=== PATIENT | male | born 1980 | race Caucasian/White ===

== ENCOUNTER 2016-11-15 07:57 | Inpatient (IN) ==
[2016-11-15 08:09] LABS: BUN 16 mg/dL (8-22); CALCIUM 9.1 mg/dL (8.8-10.2); CHLORIDE 102 mmol/L (98-107); CK PROFILE 240 U/L (24-204); POTASSIUM 5.7 mmol/L (3.5-5.1); SODIUM 138 mmol/L (136-145); TCO2 28 mmol/L (25-35); TOTAL BILIRUBIN 0.42 mg/dL (0.20-1.00); TOTAL PROTEIN 6.9 g/dL (6.3-8.3)
[2016-11-15 08:10] LABS: AGAP 8; ALBUMIN 4.3 g/dL (3.5-5.0); ALKALINE PHOSPHATASE 76 U/L (32-122); CK INDEX 2.2 (0.0-2.5); CK-MB 5.34 ng/mL (0.0-5.0); COSMO 278; GOT 18 U/L (10-34); GPT 15 U/L (10-44)
[2016-11-15 08:11] LABS: UR AMPHETAMINES QUAL NONE DETECTED (NONE DETECT); UR BARBITUATES QUAL NONE DETECTED (NONE DETECT); UR BENZODIAZEPIN QUAL NONE DETECTED (NONE DETECT); UR CANNABINOIDS QUAL NONE DETECTED (NONE DETECT); UR COCAINE QUAL NONE DETECTED (NONE DETECT); UR METHADONE QUAL NONE DETECTED (NONE DETECT); UR OPIATES QUAL NONE DETECTED (NONE DETECT); UR OXYCODONE QUAL NONE DETECTED (NONE DETECT); UR PCP QUAL NONE DETECTED (NONE DETECT)
[2016-11-15 08:37] LABS: BLOOD TYPE ARTERIAL; PO2(98.6) 132 mmHg (60-100); SAMPLE BLOOD; pH(98.6) 7.23 (7.35-7.45)
[2016-11-15 08:38] LABS: BE -1.7 mmoll (-3.0-3.0); METHB 1.8 % (0.0-1.5); MODALITY CANNULA; O2(CT) 17.7 mL/dL (15.0-23.0); SAO2 97.7 % (95.0-100.0); THB 13.1 g/dL (11.5-17.4)
[2016-11-15 08:40] LABS: ALLEN TEST YES; DRAW SITE R RADIAL
[2016-11-15 08:41] LABS: PCO2(98.6) 65 mmHg (35-45)
[2016-11-15 08:43] LABS: MANUAL DIFF NEEDED? NO; URINE CULTURE NEEDED? NO; URINE MICRO REVIEW NEEDED? NO; URINE SOURCE CATH
[2016-11-15 09:31] LABS: BASO% 0.1 % (0.0-0.8); EOS# 0.13 X1000 (0.0-0.7); EOS% 1.5 % (0.0-10.0); HEMATOCRIT 41.5 % (42.0-52.0); HEMOGLOBIN 14.1 g/dL (14.0-18.0); LYMPH% 16.1 % (20.5-51.1); MCH 30.2 PG (27-31); MCV 88.9 FL (81-99); MONO% 9.2 % (1.7-9.3); MPV 9.4 FL (7.4-10.4); NEUT% 73.1 % (42.2-75.2); PLT 161 X1000 (130-400); RBC 4.67 XMIL (4.7-6.1)
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
[2016-11-15 09:48] LABS: UR EPITHELIAL CELLS <10 /HPF (<10); URINE RBC <10 /HPF (<10); URINE WBC <10 /HPF (<10)
[2016-11-15 09:49] LABS: BILIRUBIN URINE NEGATIVE (NEGATIVE); BLOOD URINE NEGATIVE (NEGATIVE); COLOR YELLOW; GLUCOSE URINE NEGATIVE (NEGATIVE); TURBIDITY URINE CLEAR (CLEAR); URINE BACTERIA NEGATIVE /HPF
[2016-11-15 09:50] LABS: LEUKOCYTES URINE NEGATIVE (NEGATIVE); NITRITE URINE NEGATIVE (NEGATIVE); PROTEIN URINE NEGATIVE (NEGATIVE); UROBILINOGEN URINE NORMAL (NORMAL)
--- NOTE | 2016-11-15 13:30 | Diag Imaging Result Document ---
PROCEDURE NAME: ANGIOGRAM/HEAD AND NECK - 11/15/2016 CT ANGIOGRAM NECK AND HEAD. MIP IMAGES OBTAINED. FINDINGS: Normal left common carotid artery and internal carotid artery. The proximal right common carotid artery is poorly seen with artifact. Normal mid and distal right common carotid artery. Normal proximal and mid internal carotid artery. There is artifact on the MIP images distally, but axial images show normal distal internal carotid artery. There is flow in each vertebral artery. The right is dominant compared to the left. IMPRESSION: No stenosis within either common carotid or internal carotid artery. CT ANGIOGRAM BRAIN WITH CONTRAST. MIP IMAGES OBTAINED. FINDINGS: There is normal flow in each distal internal carotid artery. Normal filling of each middle cerebral artery. The A1 segment on the right is smaller than that of the left. 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 There is normal flow in the posterior cerebral arteries. Normal basilar artery. No aneurysms. 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 A preliminary report was given at 12:10 p.m. [facility]
--- NOTE | 2016-11-15 14:04 | Diag Imaging Result Document ---
PROCEDURE NAME: HEAD W/O CONTRAST - 11/15/2016 CT BRAIN WITHOUT CONTRAST. FINDINGS: No parenchymal hemorrhage. No epidural or subdural hematoma. No subarachnoid hemorrhage. No mass identified on this noncontrasted exam. No midline shift. No hydrocephalus. No sinus opacification. IMPRESSION: No hemorrhage. Negative brain CT without contrast. A preliminary report was given at 6:41 a.m. [facility]
[2016-11-15] MEDS ORDERED: D50W SYRINGE IV ONE (14:48)
[2016-11-15] MEDS ORDERED: HUMULIN R IV ONE (14:48)
--- NOTE | 2016-11-15 15:26 | Diag Imaging Result Document ---
PROCEDURE NAME: CHEST-PORTABLE - 11/15/2016 PORTABLE CHEST: FINDINGS: There are infiltrates in the upper right lung and in the left base. Poor inspiratory effort. The heart is not enlarged. The vessels are not distended. No pleural effusions identified. IMPRESSION: Bilateral infiltrates.
[2016-11-15 15:34] LABS: ALLEN TEST YES; BE 0.5 mmoll (-3.0-3.0); BLOOD TYPE ARTERIAL; DRAW SITE R RADIAL; PO2(98.6) 76 mmHg (60-100); SAMPLE BLOOD; pH(98.6) 7.29 (7.35-7.45)
[2016-11-15 15:39] LABS: PCO2(98.6) 59 mmHg (35-45)
[2016-11-15] MEDS ORDERED: ZOFRAN IV PRN (16:32)
[2016-11-15] MEDS: NS 1,000 ML IV SCH (16:55)
[2016-11-15] MEDS: ROCEPHIN 1 GM/NS 1 GM/50 ML IVPB IV SCH (17:01)
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
[2016-11-15] MEDS: ZITHROMAX 500 MG/NS 500 MG/250 ML IVPB IV SCH (18:32)
[2016-11-15] MEDS: NS 1,000 ML IV ONE ×3 (21:26→21:35)
[2016-11-15 21:56] LABS: BLOOD TYPE ARTERIAL; SAMPLE BLOOD; pH(98.6) 7.28 (7.35-7.45)
[2016-11-15 21:57] LABS: PCO2(98.6) 56 mmHg (35-45); PO2(98.6) 95 mmHg (60-100)
[2016-11-15 21:58] LABS: ALLEN TEST YES; DRAW SITE R RADIAL; MODALITY BI PAP
[2016-11-16 04:40] LABS: ALLEN TEST YES; BE 1.3 mmoll (-3.0-3.0); BLOOD TYPE ARTERIAL; DRAW SITE R RADIAL; O2(CT) 18.6 mL/dL (15.0-23.0); PO2(98.6) 109 mmHg (60-100); SAMPLE BLOOD; SAO2 98.4 % (95.0-100.0); THB 13.9 g/dL (11.5-17.4); pH(98.6) 7.34 (7.35-7.45)
[2016-11-16 04:41] LABS: MODALITY BI PAP; PCO2(98.6) 52 mmHg (35-45)
[2016-11-16] MEDS: NS 1,000 ML IV SCH ×2 (05:12→16:30)
[2016-11-16 05:16] LABS: MANUAL DIFF NEEDED? NO
[2016-11-16 05:22] LABS: BASO% 0.2 % (0.0-0.8); EOS# 0.12 X1000 (0.0-0.7); EOS% 2.1 % (0.0-10.0); HEMATOCRIT 40.7 % (42.0-52.0); HEMOGLOBIN 13.6 g/dL (14.0-18.0); LYMPH# 0.32 X1000 (1.2-3.4); LYMPH% 5.7 % (20.5-51.1); MCHC 33.4 g/dL (33-37); MCV 89.6 FL (81-99); MONO# 0.58 X1000 (0.11-0.59); MONO% 10.3 % (1.7-9.3); MPV 9.8 FL (7.4-10.4); NEUT% 81.7 % (42.2-75.2); PLT 141 X1000 (130-400); RBC 4.54 XMIL (4.7-6.1)
[2016-11-16 05:27] LABS: INR 0.99; PROTIME 10.4 Seconds (9.2-11.7); PTT 26.6 Seconds (22.0-36.0)
[2016-11-16 05:44] LABS: AGAP 7; ALBUMIN 3.4 g/dL (3.5-5.0); ALKALINE PHOSPHATASE 71 U/L (32-122); BUN 16 mg/dL (8-22); CALCIUM 8.4 mg/dL (8.8-10.2); CHLORIDE 109 mmol/L (98-107); COSMO 284; GOT 13 U/L (10-34); GPT 15 U/L (10-44); MAGNESIUM 2.1 mg/dL (1.5-2.7); POTASSIUM 4.5 mmol/L (3.5-5.1); SODIUM 142 mmol/L (136-145); TCO2 26 mmol/L (25-35); TOTAL BILIRUBIN 0.44 mg/dL (0.20-1.00); TOTAL PROTEIN 5.7 g/dL (6.3-8.3)
--- NOTE | 2016-11-16 09:05 | Diag Imaging Result Document ---
PROCEDURE NAME: CHEST-PORTABLE - 11/16/2016 PORTABLE CHEST: Compared with 11/15/2016. FINDINGS: Inspiration is somewhat shallow. There has been some decrease in right upper lung infiltrate. There is stable ill-defined infiltrate at the left base. There is no pleural effusion or pneumothorax seen. Heart size is within normal limits. IMPRESSION: Some decrease in right upper lung infiltrate. Stable left basilar infiltrate.
[2016-11-16] MEDS: LOVENOX SUBQ SCH (09:20)
[2016-11-16] MEDS ORDERED: SODIUM CHLORIDE 0.9% INJ SCH (14:15)
[2016-11-16] MEDS: DUONEB (A & A) INH SCH ×4 (15:47→23:21)
--- NOTE | 2016-11-16 16:25 | PROGRESS NOTE ---
DATE: 11/16/2016 SUBJECTIVE: The patient is still sleepy and lethargic. No acute events noted overnight. OBJECTIVE: Vital Signs: Temperature 98 degrees, blood pressure 92/49, heart rate 87, respirations 22, O2 saturations 99% on 2 L nasal cannula. General: This is a young male, lying in bed, in no acute distress. Head: Normocephalic, atraumatic. Heart: S1, S2 normal. Regular rate and rhythm. Lungs: Clear to auscultation bilaterally. Equal air entry bilaterally. Abdomen: Positive bowel sounds. Soft, nontender, nondistended. Extremities: No edema. No cyanosis. No calf tenderness. Neurologic: The patient is lethargic. LABORATORY: White blood cell count 5.6, hemoglobin 13, hematocrit 40, platelets 141,000. ABG: PH of 7.34, pCO2 of 52, PO2 109, bicarb 25. Sodium 142, potassium 4.5, chloride 109, CO2 26, BUN 16, creatinine 0.7, glucose 92. ASSESSMENT AND PLAN: 1. Acute hypercapnic respiratory failure secondary to pneumonia. Continue with BiPAP support, IV antibiotics and bronchodilator therapy. 2. Metabolic encephalopathy. The patient is still lethargic. An MRI is scheduled for tomorrow. We will also consult Neurology. 3. Pneumonia. Continue on IV antibiotic therapy. 4. Deep vein thrombosis prophylaxis. Continue on Lovenox. 5. Gastrointestinal prophylaxis. We will start the patient on IV Protonix. cc: Abida Richard MD
[2016-11-16] MEDS: ROCEPHIN 1 GM/NS 1 GM/50 ML IVPB IV SCH (16:30)
[2016-11-16] MEDS: ZITHROMAX 500 MG/NS 500 MG/250 ML IVPB IV SCH (17:34)
[2016-11-17] MEDS: DUONEB (A & A) INH SCH ×6 (03:05→22:38)
[2016-11-17] MEDS: NS 1,000 ML IV SCH (03:34)
[2016-11-17 04:36] LABS: ALLEN TEST YES; BE 3.1 mmoll (-3.0-3.0); BLOOD TYPE ARTERIAL; DRAW SITE R RADIAL; METHB 1.6 % (0.0-1.5); O2(CT) 16.8 mL/dL (15.0-23.0); PO2(98.6) 100 mmHg (60-100); SAMPLE BLOOD; SAO2 97.6 % (95.0-100.0); SRATE 10 BPM; THB 12.5 g/dL (11.5-17.4); pH(98.6) 7.35 (7.35-7.45)
[2016-11-17 04:38] LABS: MODALITY BI PAP; PCO2(98.6) 54 mmHg (35-45)
[2016-11-17 04:57] LABS: MANUAL DIFF NEEDED? NO
[2016-11-17 05:02] LABS: BASO% 0.1 % (0.0-0.8); EOS# 0.28 X1000 (0.0-0.7); EOS% 3.5 % (0.0-10.0); HEMATOCRIT 39.5 % (42.0-52.0); HEMOGLOBIN 13.1 g/dL (14.0-18.0); LYMPH# 1.23 X1000 (1.2-3.4); LYMPH% 15.6 % (20.5-51.1); MCH 30.5 PG (27-31); MCHC 33.2 g/dL (33-37); MCV 91.9 FL (81-99); MONO# 0.91 X1000 (0.11-0.59); MONO% 11.5 % (1.7-9.3); MPV 9.9 FL (7.4-10.4); NEUT% 69.3 % (42.2-75.2); PLT 144 X1000 (130-400)
[2016-11-17 05:19] LABS: AGAP 9; ALBUMIN 3.1 g/dL (3.5-5.0); ALKALINE PHOSPHATASE 67 U/L (32-122); BUN 10 mg/dL (8-22); CALCIUM 8.2 mg/dL (8.8-10.2); CHLORIDE 111 mmol/L (98-107); COSMO 288; GOT 14 U/L (10-34); GPT 18 U/L (10-44); POTASSIUM 3.9 mmol/L (3.5-5.1); SODIUM 146 mmol/L (136-145); TCO2 26 mmol/L (25-35); TOTAL BILIRUBIN 0.27 mg/dL (0.20-1.00); TOTAL PROTEIN 5.6 g/dL (6.3-8.3)
--- NOTE | 2016-11-17 06:12 | EKG Report ---
Test Performed on : 11/16/2016 06:40:35 AM Test Reason : chest pain Blood Pressure : / mmHG Vent. Rate : 098 BPM Atrial Rate : 098 BPM P-R Int : 124 ms QRS Dur : 096 ms QT Int : 342 ms P-R-T Axes : 044 024 033 degrees QTc Int : 436 ms Normal sinus rhythm. Nonspecific T wave abnormality Abnormal ECG When compared with ECG of 15-NOV-2016 13:54, (Unconfirmed) No significant change was found Confirmed by Bryce Vanessa MD ([id number]) on 11/17/2016 7:32:12 AM
--- NOTE | 2016-11-17 06:25 | EKG Report ---
Test Performed on : 11/15/2016 1:54:10 PM Test Reason : hyperkalemia Blood Pressure : / mmHG Vent. Rate : 087 BPM Atrial Rate : 087 BPM P-R Int : 142 ms QRS Dur : 106 ms QT Int : 372 ms P-R-T Axes : 056 025 062 degrees QTc Int : 447 ms Normal sinus rhythm. Nonspecific T wave abnormality Abnormal ECG When compared with ECG of 15-NOV-2016 13:52, (Unconfirmed) ST no longer elevated in Inferior leads Unconfirmed Result
[2016-11-17 06:36] LABS: MODALITY CANNULA
[2016-11-17] MEDS: D5W 1,000 ML IV SCH ×3 (07:48→23:45)
[2016-11-17] MEDS: PROTONIX IV SCH (07:50)
[2016-11-17] MEDS: LOVENOX SUBQ SCH (07:50)
--- NOTE | 2016-11-17 08:01 | Diag Imaging Result Document ---
PROCEDURE NAME: CHEST-PORTABLE - 11/17/2016 PORTABLE CHEST X-RAY, 11/17/2016: COMPARISON: 11/16/2016. FINDINGS: There is grossly stable ill-defined interstitial infiltrates particularly at the right upper lobe and left base. No new abnormalities. IMPRESSION: Stable infiltrates.
--- NOTE | 2016-11-17 09:29 | EKG Report ---
Test Performed on : 11/15/2016 06:50:18 AM Test Reason : ED. Not ordered in [place] Blood Pressure : / mmHG Vent. Rate : 089 BPM Atrial Rate : 089 BPM P-R Int : 134 ms QRS Dur : 098 ms QT Int : 378 ms P-R-T Axes : 055 032 037 degrees QTc Int : 459 ms Normal sinus rhythm. Normal ECG No previous ECGs available Unconfirmed Result
--- NOTE | 2016-11-17 12:42 | PROGRESS NOTE ---
DATE: 11/17/2016 SUBJECTIVE: The patient is starting to wake up today. He is still confused, however. No acute events noted overnight. OBJECTIVE: Vital Signs: Temperature 97.4, blood pressure 119/79, heart rate 76, respirations 19. O2 saturations 97% on 2 L nasal cannula. General: This is a young male, lying in bed, in no acute distress. Head: Normocephalic, atraumatic. Heart: S1, S2 normal. Regular rate and rhythm. Lungs: Clear to auscultation bilaterally. Abdomen: Positive bowel sounds. Soft, nontender, nondistended. Extremities: No edema. No cyanosis. No calf tenderness. Neurologic: The patient is alert and oriented x3. LABS: White blood cell count 7.9, hemoglobin 13, hematocrit 39, platelets 144. Sodium 146, potassium 3.9, chloride 111, CO2 of 26, BUN 10, creatinine 0.7, glucose 78. ASSESSMENT AND PLAN: 1. Acute hypercapnic respiratory failure, improving. Continue with BiPAP at night. 2. Pneumonia. Continue on antibiotic therapy plus bronchodilator therapy. 3. Metabolic encephalopathy. The patient is starting to wake up, but remains confused. The patient is scheduled for an MRI today and Neurology has been consulted. 4. Hypernatremia. We will start the patient on D5W. 5. Gastrointestinal prophylaxis. Continue on Protonix. 6. Deep vein thrombosis prophylaxis. Continue on Lovenox. cc: Abida Richard MD
[2016-11-17] MEDS: ZITHROMAX 500 MG/NS 500 MG/250 ML IVPB IV SCH (17:03)
[2016-11-17] MEDS: ROCEPHIN 1 GM/NS 1 GM/50 ML IVPB IV SCH (17:06)
--- NOTE | 2016-11-18 01:01 | CONSULTATION ---
DATE OF CONSULTATION: 11/17/2016 REASON FOR CONSULTATION: The patient is seen in consultation at the request of Dr. Richard for evaluation of altered mental status and unequal pupils. HISTORY OF PRESENT ILLNESS: The patient is a 36-year-old male senior care inmate, who was admitted on 11/15/2016 with altered mental status and unequal pupils. Per discussion with the nurse at the senior care facility, on 11/14 in the evening, the patient was agitated and needed to be subdued by the substitute crossing guard. There was no report of any head injury during this time. They note that this is not unusual behavior for him to have at times. The following morning, around 5:30 a.m., he was noted to be sitting on his bed trying to feed himself, but he was shaking in his arms and was unable to do so. He was able to follow commands to come over to the gate. His gait was unsteady. His pupils were unequal, which initially they thought was new for him. He had AMS and, while he could follow commands, his response time was slowed. His speech was slurred. Rumors are apparently circulating in the senior care that the patient ingested a synthetic drug called flakka. The guard also says that synthetic Spice may be in the senior care. There was some report of him being completely unresponsive upon arrival, although this is unclear. He has had a head CT and a head and neck CTA, which did not show any acute findings. There was no evidence of hemorrhage. I was subsequently contacted later and told that the guard found in the patient' s senior care medical records that the pt had a fall several years ago from about 20 feet up, with an injury of some sort. They also noted that there was mention of unequal pupils in August of this year. Of note, while the patient has been relatively quiet and seemingly altered in his ICU room by report, when they took him down for an MRI, he suddenly was more active, trying to get off the bed, and would have required sedation for him to sit still for the MRI. PAST MEDICAL HISTORY: Again, there was a fall from 20 feet up several years ago , with a possible head injury. There appears to be a burn to the right thigh. Other than this, is obtainable. SOCIAL, FAMILY, HOME MEDS: otherwise unobtainable. REVIEW OF SYSTEMS: Unable to assess, due to patient's mental status. ALLERGIES: No known drug allergies per the chart. DIAGNOSTIC DATA: White count 7.9, hemoglobin 13, hematocrit 39, platelets 144, 000. Sodium 146, potassium 3.9, BUN 10, creatinine 0.7, calcium 8.2, phosphorus 2.6, magnesium 2.0. AST 14, ALT 18, alkaline phosphatase 67. TSH 0.12, free T4 0.8. Urinalysis negative. Toxicology and alcohol negative. Chest x-ray with bilateral infiltrates. Head CT and head and neck CTA without acute findings. PHYSICAL EXAMINATION: Vital Signs: Reviewed. The patient is supine in bed, snoring. He does not arouse when I call his name. However, when I call his name and tap his shoulder, he opened his eyes and looked toward me. He quickly closes his eyes again, and does not follow most commands. With further tactile stimulation, he arouses, and is able to look to the left and look to the right on command. HEENT: Atraumatic and normocephalic. His mucous membranes are dry. CV: Regular rate and rhythm. No murmurs are appreciated. Pulm: Clear to auscultation anteriorly. Abd: Soft, nontender, nondistended. Ext: No edema. Mental status: As above. Cranial nerves: He has prominent anisocoria. Right eye is 8 mm with less light in the room, and slowly reactive down to about 6 mm. Left eye is about 4.5 mm with less light in the room, and also slowly reactive to about 2 mm. Consensual light reflex is sluggish bilaterally. I could not test accommodation in this patient. His gaze is conjugate. He is noted to be able to look to the left and to the right eye fully. There is no nystagmus. Cannot assess visual tavera. His face is symmetrical, with equal grimace. No ptosis is appreciated. Motor: Normal bulk and tone. No abnormal movements. Cannot test for pronator drift. He is at least 3/5 in all extremities, and equal. Reflexes: symmetric, 2+ in the upper extremities, with bilateral Ivy signs. He is slightly more brisk in the left lower extremity at the knee, 3+, as well as has nonsustained clonus, around 7 beats. The right lower extremity is 2+. No clonus there. His plantar response is flexor bilaterally, though there is excessive withdrawal even to light stimulation. Sensory Examination: He responds to painful stimulation in all extremities. At times when painful stimulus is given, such as nailbed pressure , he clearly opened his eyes and directly looks right at me. Cerebellar coordination and gait are unable to be assessed due to his mental status. ASSESSMENT AND PLAN: This is a 36-year-old male senior care inmate who was admitted with altered mental status and concern for anisocoria. Encephalopathy. At this point, the differential includes toxic metabolic and infectious encephalopathy. After further investigation, it appears that the anisocoria is not new for him, at least since August of this year. While there is anisocoria, both of the pupils do react, although sluggishly. They are both relatively equally asymmetric in the light, as well as relative darkness. His gaze is conjugate. There is no evidence of Aurelio's or ptosis. There is no hemorrhage on the head CT, and the CTAs do not show any evidence of aneurysms. Would recommend a routine EEG to evaluate for the presence encephalopathy. MRI of the brain with and without contrast, as well as an MRI of the C-spine. I have already ordered the EEG. The patient will likely require Ativan for the MRI. I agree with the treatment of the pneumonia per primary team. Thank you for this consultation. Will follow. cc: Tasha Dinero MD MTDD
[2016-11-18 04:15] LABS: ALLEN TEST YES; BLOOD TYPE ARTERIAL; DRAW SITE R RADIAL; METHB 1.1 % (0.0-1.5); O2(CT) 18.3 mL/dL (15.0-23.0); PCO2(98.6) 40 mmHg (35-45); PO2(98.6) 75 mmHg (60-100); SAMPLE BLOOD; SAO2 97.5 % (95.0-100.0); THB 13.8 g/dL (11.5-17.4); pH(98.6) 7.47 (7.35-7.45)
[2016-11-18 04:17] LABS: MODALITY ROOM AIR
[2016-11-18 04:21] LABS: MANUAL DIFF NEEDED? NO
[2016-11-18 04:24] LABS: BASO% 0.1 % (0.0-0.8); EOS# 0.24 X1000 (0.0-0.7); EOS% 2.3 % (0.0-10.0); HEMATOCRIT 39.5 % (42.0-52.0); HEMOGLOBIN 13.4 g/dL (14.0-18.0); IMM GRAN# 0.02 X1000 (0.0-0.04); IMM GRAN% 0.2 % (0.0-0.5); LYMPH# 1.93 X1000 (1.2-3.4); LYMPH% 18.6 % (20.5-51.1); MCHC 33.9 g/dL (33-37); MCV 88.6 FL (81-99); MONO# 1.22 X1000 (0.11-0.59); MONO% 11.8 % (1.7-9.3); MPV 9.6 FL (7.4-10.4); PLT 167 X1000 (130-400); RBC 4.46 XMIL (4.7-6.1)
[2016-11-18 04:41] LABS: AGAP 12; ALBUMIN 3.5 g/dL (3.5-5.0); ALKALINE PHOSPHATASE 71 U/L (32-122); BUN 7 mg/dL (8-22); CALCIUM 9.3 mg/dL (8.8-10.2); CHLORIDE 104 mmol/L (98-107); COSMO 283; GOT 9 U/L (10-34); GPT 15 U/L (10-44); MAGNESIUM 1.9 mg/dL (1.5-2.7); POTASSIUM 3.4 mmol/L (3.5-5.1); SODIUM 143 mmol/L (136-145); TCO2 27 mmol/L (25-35); TOTAL BILIRUBIN 0.56 mg/dL (0.20-1.00); TOTAL PROTEIN 6.5 g/dL (6.3-8.3)
[2016-11-18] MEDS: PROTONIX IV SCH (06:24)
[2016-11-18] MEDS: DUONEB (A & A) INH SCH ×6 (07:39→23:10)
[2016-11-18] MEDS ORDERED: KLOR-CON PO ONE (07:49)
[2016-11-18] MEDS: ATIVAN IV PRN ×5 (08:03→19:42)
--- NOTE | 2016-11-18 08:11 | Diag Imaging Result Doc PS360 ---
CHEST-PORTABLE - 11/18/2016 6:00 AM INDICATION: Dyspnea COMPARISON: 11/17/2016 FINDINGS: The lungs are normally expanded and clear. Heart size and mediastinal contours are normal. No pneumothorax or pleural effusion. IMPRESSION: Negative exam. Electronically signed by Adam Johnson 11/18/2016 7:51 AM
[2016-11-18] MEDS: LOVENOX SUBQ SCH (09:27)
[2016-11-18] MEDS: D5W 1,000 ML IV SCH (10:30)
[2016-11-18 11:09] LABS: ALBUMIN 3.7 g/dL (3.5-5.0); ALKALINE PHOSPHATASE 70 U/L (32-122); DIRECT BILIRUBIN < 0.20 mg/dL (0.00-0.20); GOT 9 U/L (10-34); GPT 14 U/L (10-44); TOTAL BILIRUBIN 0.56 mg/dL (0.20-1.00)
--- NOTE | 2016-11-18 11:47 | PROGRESS NOTE ---
DATE: 11/18/2016 SUBJECTIVE: Early this morning, Mr. Ramsey was sent for the MRI but according to their attending, he was very extremely boisterous so they could not even do it after Ativan was given to him. 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 Even in his cells, he is not able to be in an enclosed compartment. OBJECTIVELY: Vital Signs: Blood pressure is 147/95, pulse of 92, respirations are 20, temperature is 98.6 degrees. General Examination: Mr. Ramsey is a 36-year-old, male. He was in bed. Did not seems to be in any distress. He was sleeping. HEENT: Mucosa was pink and moist. I did not do any thorough exams because patient was sleeping while has already been given Ativan and I did not want to wake him up. Laboratory Data: WBC is 10.37, hemoglobin is at 13.4, platelet count of 167,000. Chemistry is reviewed. Potassium is 3.4. Otherwise, the rest of chemistry is completely normal. Of note, patient's TSH is 0.13 and free T4 is also a little low at 0.8. Review of Imaging Studies: A CT scan which was done on admission showed no hemorrhage. Negative CT without contrast. A head and neck CT scan which was done also showed no stenosis. A CTA of the neck and head showed no stenosis either common carotid or internal carotid. Suspect congenital variant but no abnormality. A chest x-ray which was done on presentation showed bilateral infiltrates. A repeat chest x-ray done this morning shows lungs are normally expanded, no pneumothorax, no pleural effusions. It is negative. ASSESSMENT: 1. Acute hypercarbic respiratory failure. This is improved. 2. Bilateral lung infiltrates, suspicious for pneumonia. Unsure if this is aspiration after the patient became altered. Patient continues with bronchodilation and antibiotics. 3. Metabolic encephalopathy. 4. Anxiety (panic attacks with agoraphobia). 5. Thyroid dysfunction, likely due to critical illness. Would have to repeat this. PLAN: In general, Mr. Ramsey is sleeping today. I will review him later on this afternoon to see how he is doing from a neurological standpoint. If we are not able to do the MRI, we will discuss that with the neurologist to see if we can discharge the patient, for him to follow up on outpatient basis. cc: Zac Curiel MD
--- NOTE | 2016-11-18 13:06 | EEG REPORT ---
DATE: 11/17/2016 BASIC INFORMATION: Date of exam 11/17/2016. Referring Physician: Dr. Dinero, Dr. Richard. EEG number: [id number] Electrical Electronics Technician: Briseida Zayas. TECHNIQUE: A digitally recorded EEG with extra EKG channel is obtained. HISTORY OF PRESENT ILLNESS: This is a 36-year-old male admitted with altered mental status. There is rumor of ingestion of synthetic drug. MEDICATIONS: Protonix, Rocephin, Zithromax, Zofran. EEG FINDINGS: A posterior dominant alpha rhythm is notably absent. The background consists of medium amplitude, theta delta slowing with no faster frequencies noted. Spontaneous variability is fair. Occasional to frequent diffuse triphasic waves are seen. At times they are seen in groups of 1 per second for 5-8 seconds in duration. No definite epileptiform discharges seen. No focal slowing seen. Hyperventilation was not performed. Photic stimulation did not induce a photic driving response. The patient is somnolent for the study and no stage 2 sleep is noted. The EKG shows regular RR interval. IMPRESSION/RECOMMENDATIONS: Abnormal routine EEG due to: 1. Repfccvz-[id number]-cyiyoj generalized slowing with triphasic waves indicative of a bikmsjrw-sc-ifizdr nonspecific encephalopathy. 2. No definite epileptiform abnormalities and no seizures are seen. This does not rule out an underlying seizure disorder. Generalized slowing is a nonspecific finding that can be seen in processes that diffusely affect the cerebrum including toxic, metabolic, posthypoxic, and infectious etiologies. Triphasic waves are also a nonspecific finding that can be seen in encephalopathies, most often with hepatic or uremic encephalopathy. cc: Tasha iDnero MD [facility]
--- NOTE | 2016-11-18 13:16 | PROGRESS NOTE ---
DATE: 11/18/2016 HISTORY: The patient is sitting up in bed today, eating lunch. Much more alert and interactive today. Still not at baseline, however. Went down for MRI this morning but was unable to sit still after 2 mg of Ativan. PHYSICAL EXAMINATION: Vital signs were reviewed in the chart. He remains afebrile. Sitting up in bed, eating lunch and interactive. He has shown significant improvement overnight. He is able to tell me his date and how old he is. He thinks he is still in alf and does not realize he is in the hospital. He is not oriented to date. He is unable to name objects. Attention and concentration are limited. Anisocoria is seen again today. OD 8 mm, slowly reactive down to 6 mm. OS is 4 mm and more briskly reactive down to 2 mm. Conjugate gaze. His ocular movements are full. No nystagmus. No ptosis. Unable to accurately assess his visual tavrea. Motor exam, normal bulk and tone. He is at least 4/5 in all of his extremities and symmetric. His reflexes are symmetric, 2+ in the upper extremities with bilateral Linda's sign. He is 3+ in the left knee and a brisk 2+ in the right knee. He has bilateral nonsustained clonus, worse on the left. Plantar response is flexor bilaterally. DIAGNOSTICS: BUN of 7 and creatinine of 0.8. AST of 9, ALT 14, alkaline phosphatase 70. EEG was reviewed, showing a moderate to severe generalized encephalopathy with triphasic waves. Triphasic waves are nonspecific, often seen with encephalopathy, most often with uremic or hepatic origin. ASSESSMENT AND PLAN: 1. Encephalopathy, most likely toxic or metabolic. The patient is able to confirm that the anisocoria has been present for many years. His electroencephalogram is consistent with a moderate to severe encephalopathy, though this was performed yesterday when he was clinically more somnolent. He has made significant improvement in the last 24 hours. I anticipate that he will continue to improve with time. Given his significant improvement and negative CT of the head and CTA, we may be able to hold off on the MRI as previously planned. He was unable to sit for this on the attempt that was already done. Agree with checking ammonia level given the triphasic waves, though perhaps these are more indicative of some sort of ingestion, maybe. No further recommendations at this time. cc: Tasha Dinero MD MTDD
[2016-11-18] MEDS: ROCEPHIN 1 GM/NS 1 GM/50 ML IVPB IV SCH (17:08)
[2016-11-18] MEDS: ZITHROMAX 500 MG/NS 500 MG/250 ML IVPB IV SCH (17:50)
--- NOTE | 2016-11-18 18:05 | PROGRESS NOTE ---
DATE: 11/18/2016 SUBJECTIVE: This evening I saw Mr. Ramsey and he was doing a whole lot better. He was more alert. He was conversational. He seems to be still confused because he has been saying he has a lot of scratches on himself and he wants pictures of it but I think he is a whole lot better than this morning. I also spoke with the neurologist about him today. She had reviewed the EEG and did tell me there is no definitive epileptiform abnormality or seizure seen but there was a moderate to severe generalized slowing with triphasic wave indicated of moderate to severe nonspecific encephalopathy which I think is probably due to the underlying medications that he took at the [place] [facility]. ASSESSMENT: 1. Altered mental status secondary to metabolic encephalopathy. There is the suspicion that patient might have used some drugs in [facility]. 2. Acute hypercarbic respiratory failure. This is improved. 3. Bilateral lung infiltrate suspicious for pneumonia likely due to aspiration. PLAN: we are going to take out the Wu catheter. We are going to transfer the patient from the ICU to regular floor. The patient will continue one-to-one observation under the officer and hopefully will be able to discharge him tomorrow. cc: Zac Curiel MD MTDD
[2016-11-19] MEDS: ATIVAN IV PRN (04:17)
[2016-11-19 05:12] LABS: MANUAL DIFF NEEDED? NO
[2016-11-19 05:17] LABS: BASO% 0.2 % (0.0-0.8); EOS# 0.47 X1000 (0.0-0.7); EOS% 5.1 % (0.0-10.0); HEMATOCRIT 43.3 % (42.0-52.0); HEMOGLOBIN 14.8 g/dL (14.0-18.0); IMM GRAN# 0.02 X1000 (0.0-0.04); IMM GRAN% 0.2 % (0.0-0.5); LYMPH# 2.79 X1000 (1.2-3.4); LYMPH% 30.2 % (20.5-51.1); MCH 29.8 PG (27-31); MCHC 34.2 g/dL (33-37); MCV 87.3 FL (81-99); MONO# 1.12 X1000 (0.11-0.59); MONO% 12.1 % (1.7-9.3); MPV 9.5 FL (7.4-10.4); NEUT% 52.2 % (42.2-75.2); PLT 188 X1000 (130-400); RBC 4.96 XMIL (4.7-6.1)
[2016-11-19 05:34] LABS: AGAP 11; ALBUMIN 3.6 g/dL (3.5-5.0); ALKALINE PHOSPHATASE 72 U/L (32-122); BUN 10 mg/dL (8-22); CALCIUM 9.3 mg/dL (8.8-10.2); CHLORIDE 104 mmol/L (98-107); COSMO 277; GOT 8 U/L (10-34); GPT 12 U/L (10-44); MAGNESIUM 2.1 mg/dL (1.5-2.7); POTASSIUM 4.1 mmol/L (3.5-5.1); SODIUM 140 mmol/L (136-145); TCO2 25 mmol/L (25-35); TOTAL BILIRUBIN 0.55 mg/dL (0.20-1.00); TOTAL PROTEIN 6.8 g/dL (6.3-8.3)
--- NOTE | 2016-11-19 07:03 | Diag Imaging Result Doc PS360 ---
EXAM: CHEST-PORTABLE HISTORY: dyspnea COMMENT: There is ill-defined alveolar opacity in the right upper lobe which was also present on 11/18/2016 but is slightly smaller in extent than on the previous study. The inspiration is also less optimal. IMPRESSION: Right upper lobe pneumonia, slightly improved since previous study. Electronically signed by Balta Benavides 11/19/2016 7:01 AM
[2016-11-19] MEDS: DUONEB (A & A) INH SCH ×2 (08:06→08:14)
[2016-11-19] MEDS: LOVENOX SUBQ SCH ×2 (08:06→08:07)
[2016-11-19] MEDS: PROTONIX IV SCH (08:06)
--- NOTE | 2016-11-19 12:00 | DISCHARGE SUMMARY ---
ADMISSION DATE: 11/15/2016 DISCHARGE DATE: DISPOSITION: [facility]. Followup: Medical staff over there, and also the patient is recommended to have a psych evaluation. CONSULTATION DURING THIS ADMISSION: Neurology was consulted. Patient was seen by Dr. Tasha Dinero. INVASIVE PROCEDURES DONE DURING THIS ADMISSION: None. IMAGING STUDIES OF SIGNIFICANCE: 1. CT scan of the head was done, which showed no hemorrhage. Negative CT. 2. A CT head and neck was also done with contrast which showed known stenosis. 3. Multiple chest x-rays were done. The one done today shows right upper lobe pneumonia, slightly improved. 4. An electroencephalogram was done on 11/17/2016, which showed moderate to severe generalized slowing with triphasic waves, indicative of moderate to severe nonspecific encephalopathy. ADMISSION DIAGNOSES: 1. Possible toxic encephalopathy. 2. Community-acquired pneumonia. 3. Respiratory acidosis. DIAGNOSES AT THE TIME OF DISCHARGE: 1. Altered mental status, secondary to metabolic encephalopathy. 2. Acute hypercarbic respiratory failure. 3. Bilateral lung infiltrates, suspicious for aspiration pneumonia, right more than left. Imaging today shows some improvement. 4. Suspected recreational drug use in nursing home. DISCHARGE MEDICATIONS: Augmentin 875 b.i.d. for 5 additional days. PRESENTING COMPLAINT: Altered mental status. HISTORY OF PRESENTING COMPLAINT: Mr. Ramsey is a 36-year-old male prisoner of [facility], who was brought in apparently after he was tazed. Was found obtunded and unresponsive. Was brought into the emergency department for medical evaluation. HOSPITAL COURSE: The patient was evaluated. Initial database evaluation including CT scan of the head, CTA of the head and neck, were completely unremarkable. The patient was admitted to the ICU. During the ICU stay, there was an order for him to do an MRI but the patient refers to be extremely claustrophobic and panic with agoraphobia, so he was not able to do. The patient was seen on multiple occasions by the neurologist. Electroencephalogram was done which was indicative for moderate to severe encephalopathy likely due to drug induced. Patient has been medically stable; however, he continues to have episodes whereby he has been very in appropriate to the staff, using very offensive words, even up to today. However, from medical standpoint, I think he is clinically stable to be discharged. He has been advised to followup with psychiatry for a detailed evaluation and management as appropriate. He is going to be discharged on 5 more days of p.o. antibiotics, to complete a total of 10 days of therapy for the pneumonia. TIME SPENT FOR DISCHARGE: Is 36 minutes. cc: Zac Curiel MD
[2016-11-19] MEDS ORDERED: AUGMENTIN PO SCH (21:00)
== END 2016-11-19 11:41 ==
LOC: ED 07:57 → ICU 15:29 → SUATTDRO 15:29
PROVIDERS: ATTEND Internal Medicine